=== PATIENT | female | born 1980 | race Two or more races ===

== ENCOUNTER → 2024-12-12 | Outpatient (CLI) | payer MEDICAID, SELFPAY ==
--- NOTE | 2024-12-12 09:30 | XR_ITS ---
Examination: Esophagram standard Fluoroscopy 14 spot fluoroscopic films of the esophagus Upright PA chest Upright soft tissue lateral neck single view Exam date and time: December 12, 2024 0952 hours INDICATIONS: Difficulty swallowing beginning 2 months ago) TECHNIQUE AND FINDINGS: Upright PA chest demonstrates normal heart size, lungs are clear Soft tissue lateral neck demonstrates normal epiglottis Patient swallowed thin barium with 14 spot films of the esophagus obtained, fluoroscopy 0.10 minute Primary peristaltic esophageal waves noted Continuous gastroesophageal reflux No constricting esophageal lesion No stricture at the gastroesophageal junction No esophageal ulcerations IMPRESSION: Moderate continuous gastroesophageal reflux
== END | disposition home or self-care (01) ==
LOC: CDIM 09:33
PROVIDERS: PCP Physician Assistant Medical; Referring Provider Physician Assistant Medical; Visit Provider Physician Assistant Medical
DX: K21.9 Gastro-esophageal reflux disease without esophagitis (principal)
CPT/HCPCS: 74220; A4699

== ENCOUNTER → 2025-02-20 | Outpatient (CLI) | payer MEDICAID, SELFPAY ==
--- NOTE | 2025-02-20 | XR_ITS ---
Examination: Abdomen AP single view Technique: AP portable supine abdomen, single view Exam date and time: February 20, 2025 1159 hours INDICATIONS: History kidney stones status post lithotripsy 2 years ago. FINDINGS: 3 mm mid to upper pole left renal calculus No ureteral calculi Nonobstructive bowel gas pattern IMPRESSION: 3 mm left renal calculus
== END | disposition home or self-care (01) ==
LOC: CDIM 11:53
PROVIDERS: Referring Provider Surgery; Visit Provider Surgery
DX: N20.0 Calculus of kidney (principal)
CPT/HCPCS: 74018